=== PATIENT | female | born 1970 ===

== ENCOUNTER 2023-12-28 11:05 | Outpatient (OUT) | payer OTHER, SELFPAY ==
--- NOTE | 2023-12-28 | XR_ITS ---
The [address] [address] Patient Name: SUSU WILKERSON MRN: [id number] date: 1970 Sex: F Assigned Patient Location: Current Patient Location: Accession/Order Number: [id number] Exam Date: 12/28/2023 11:20 Report Date: 12/28/2023 13:11 At the request of: SAVITA SPENCE Procedure: XR foot CUATE min 3V EXAMINATION: XR foot CUATE min 3V HISTORY: BILATERAL FOOT PAIN COMPARISON: No relevant comparison available. FINDINGS: RIGHT FINDINGS: BONES: No acute fracture or dislocation. Bulky enthesopathic spurring Achilles insertion of the calcaneus. Mild degenerative changes with marginal osteophyte formation primarily in the midfoot. SOFT TISSUES: Negative. No visible soft tissue swelling. OTHER: Negative. LEFT FINDINGS: BONES: No acute fracture or dislocation. Bulky enthesopathic spurring Achilles insertion of the calcaneus. Mild degenerative changes with marginal osteophyte formation primarily in the midfoot. SOFT TISSUES: Negative. No visible soft tissue swelling. OTHER: Negative. XR/XR foot CUATE min 3V IMPRESSION: RIGHT CONCLUSION: Calcaneal enthesopathy LEFT CONCLUSION: Calcaneal enthesopathy Electronically authenticated by: JEANNINE GUERRA Date: 12/28/2023 13:11
== END 2023-12-28 11:06 | disposition home or self-care (01) ==
LOC: EC 11:05
PROVIDERS: Visit Provider Podiatrist Foot & Ankle Surgery
DX: M79.672 Pain in left foot (principal); M79.671 Pain in right foot
CPT/HCPCS: 73630